=== PATIENT | male | born 1975 | race Caucasian/White ===

== ENCOUNTER → 2019-12-18 08:44 | Outpatient (CLI) | payer OTHER, SELFPAY ==
[2019-12-18 09:48] LABS: Bacteria Urine None Seen; RBC Urine None Seen (0-5/HPF); WBC Urine None Seen (0-5/HPF)
[2019-12-18 09:50] LABS: Appearance Urine UA CLEAR; Bilirubin Urine UA NEGATIVE (NEGATIVE); Color Urine UA YELLOW; Glucose Urine UA NEGATIVE (Negative); Ketones Urine UA NEGATIVE (NEGATIVE); Leukocyte Esterase Urine UA NEGATIVE (NEGATIVE); Nitrite Urine UA NEGATIVE (Negative); Occult Blood Urine UA NEGATIVE (Negative); Protein Urine UA NEGATIVE (Negative); Specific Gravity Urine UA 1.025 (1.000-1.035); Urobilinogen Urine UA 0.2 E.U./dL (0.2)
[2019-12-18 09:54] LABS: Culture Indicated Urine Cult Not Indicated; Urine Comments Microscopic Normal
[2019-12-18 10:14] LABS: Add Manual Diff / Slide Review NO; Basophils Absolute Auto 0 /uL (0-100); Basophils Percent Auto 1.4 % (0-2); Eosinophils Absolute Auto 100 /uL (0-450); Eosinophils Percent Auto 2.7 % (2-4); Hematocrit 42.1 % (41-53); Hemoglobin 15.2 g/dL (13.5-17.5); Lymphocytes Absolute Auto 1100 /uL (1100-4500); Lymphocytes Percent Auto 45.3 % (25-40); Mean Corpuscular HGB Conc 36.2 % (30-36); Mean Corpuscular Hemoglobin 32.7 PG (26-34); Mean Corpuscular Volume 90.2 fL (80-100); Monocytes Absolute Auto 300 /uL (0-900); Monocytes Percent Auto 11.1 % (3-14); Neutrophils Absolute Auto 1000 /uL (1500-7000); Neutrophils Percent Auto 39.5 % (50-75); Platelet Count 175 X10^3/uL (150-400); Red Blood Cell Count 4.66 X10^6/uL (4.5-5.9); Red Cell Distribution Width 12.8 % (11.6-14.8); White Blood Cell Count 2.5 X10^3/uL (4.5-11.0)
[2019-12-18 11:08] LABS: Alanine Aminotransferase 33 IU/L (<50); Albumin 4.6 g/dL (3.5-5.0); Albumin Globulin Ratio 1.8 (1.0-2.8); Alkaline Phosphatase 50 U/L (38-126); Aspartate Aminotransferase 38 IU/L (17-59); BUN Creatinine Ratio 16.3 (6-22); Blood Urea Nitrogen 14 mg/dL (9-20); Calcium 9.1 mg/dL (8.4-10.2); Carbon Dioxide 28 mmol/L (22-32); Chloride 102 mmol/L (98-107); Estimated Glomerular Filt Rate > 60.0 mL/min (>60); Globulin 2.6 g/dL (1.7-4.1); Glucose 82 mg/dL (70-100); HEMOLYSIS < 15 (0-50); Lipase 71 U/L (23-300); Potassium 4.1 mmol/L (3.4-5.1); Sodium 137 mmol/L (137-145); Total Protein 7.2 g/dL (6.3-8.2)
== END ==
PROVIDERS: Nurse Practitioner; PCP Internal Medicine; Referring Provider Physician Assistant; Visit Provider Physician Assistant
DX: R10.9 Unspecified abdominal pain (principal)
CPT/HCPCS: 36415; 80053; 81001; 83690; 85025

== ENCOUNTER → 2019-12-28 13:04 | Outpatient (CLI) | payer OTHER, SELFPAY ==
--- NOTE | 2019-12-28 13:05 | DI.CT.S_ITS ---
PROCEDURE: CT ABDOMEN PELVIS W CON INDICATIONS: Lower mid abd pain/pressure x 1 year TECHNIQUE: After the administration of intravenous contrast, 5 mm thick sections acquired from the diaphragm to the symphysis. 5 mm coronal and sagittal reformats were acquired. For radiation dose reduction, the following was used: automated exposure control, adjustment of mA and/or kV according to patient size. COMPARISON: None. FINDINGS: Image quality: Excellent. ABDOMEN: Lung bases: Lung bases are clear. Heart size is normal. Small hiatal hernia. Solid organs: Liver is normal in size and enhancement. Gallbladder is normal. Biliary system is non dilated. Pancreas enhances normally. Spleen is normal in size and enhancement. No adrenal nodules. Kidneys demonstrate normal size and enhancement, without hydronephrosis. Low-density cortical nodules in kidneys are most likely small renal cysts. Peritoneum and bowel: Appendix is normal. Bowel loops demonstrate normal wall thickness and caliber. No free fluid or air. Nodes and vessels: No retroperitoneal or mesenteric adenopathy by size criteria. Aorta and inferior vena cava are normal in size. Miscellaneous: No ventral hernias. PELVIS: Genitourinary: Bladder wall appears mildly thickened. Prostate is unremarkable. Miscellaneous: No inguinal hernias or adenopathy. Bones: No suspicious bony lesions. No vertebral body compression fractures. Mild degenerative changes in lumbar spine. IMPRESSION: 1. Mild bladder wall thickening suggesting mild cystitis or chronic bladder outlet obstruction. Recommend clinical correlation. 2. Normal appendix. Dictated by: Alison Mcnair M.D. on 12/28/2019 at 14:28 Approved by: Alison Mcnair M.D. on 12/28/2019 at 14:32
== END ==
PROVIDERS: PCP Internal Medicine; Referring Provider Nurse Practitioner; Visit Provider Nurse Practitioner
DX: R10.30 Lower abdominal pain, unspecified (principal); K44.9 Diaphragmatic hernia without obstruction or gangrene
CPT/HCPCS: 74177

== ENCOUNTER → 2020-01-10 07:08 | Outpatient (CLI) | payer OTHER, SELFPAY ==
[2020-01-10 08:30] LABS: Add Manual Diff / Slide Review NO; Basophils Absolute Auto 0 /uL (0-100); Basophils Percent Auto 1.1 % (0-2); Eosinophils Absolute Auto 100 /uL (0-450); Hematocrit 40.2 % (41-53); Hemoglobin 14.6 g/dL (13.5-17.5); Lymphocytes Absolute Auto 1200 /uL (1100-4500); Lymphocytes Percent Auto 41.2 % (25-40); Mean Corpuscular HGB Conc 36.4 % (30-36); Mean Corpuscular Hemoglobin 32.4 PG (26-34); Monocytes Absolute Auto 300 /uL (0-900); Neutrophils Absolute Auto 1200 /uL (1500-7000); Neutrophils Percent Auto 42.7 % (50-75); Platelet Count 181 X10^3/uL (150-400); Red Blood Cell Count 4.51 X10^6/uL (4.5-5.9); Red Cell Distribution Width 12.3 % (11.6-14.8); White Blood Cell Count 2.8 X10^3/uL (4.5-11.0)
[2020-01-10 08:39] LABS: Alanine Aminotransferase 29 IU/L (<50); Albumin 4.3 g/dL (3.5-5.0); Albumin Globulin Ratio 1.6 (1.0-2.8); Alkaline Phosphatase 45 U/L (38-126); Aspartate Aminotransferase 33 IU/L (17-59); BUN Creatinine Ratio 14.5 (6-22); Bilirubin Total 0.8 mg/dL (0.2-1.3); Blood Urea Nitrogen 11 mg/dL (9-20); Calcium 8.9 mg/dL (8.4-10.2); Carbon Dioxide 31 mmol/L (22-32); Chloride 104 mmol/L (98-107); Cholesterol 212 mg/dL (140-199); Estimated Glomerular Filt Rate > 60.0 mL/min (>60); Globulin 2.7 g/dL (1.7-4.1); Glucose 91 mg/dL (70-100); HDL Cholesterol 50 mg/dL (40-60); HEMOLYSIS < 15 (0-50); LDL Cholesterol Calculated 146 mg/dL (<100); Sodium 138 mmol/L (137-145); Triglycerides 82 mg/dL (35-150)
[2020-01-10 08:51] LABS: HEMOLYSIS < 15 (0-50); Iron 111 ug/dL (49-181)
[2020-01-10 09:01] LABS: Prostate Specific Antigen Scrn 0.283 ng/mL (0.1-4.0)
[2020-01-10 09:03] LABS: Percent Iron Saturation 34 % (20-50); Total Iron Binding Capacity 325 ug/dL (261-462); Transferrin 246 mg/dL (206-381)
[2020-01-10 09:05] LABS: Ferritin 73 ng/mL (18-464)
[2020-01-10 09:10] LABS: Vitamin D 25 Hydroxy (D3) 68.6 ng/mL (30.0-100.0)
[2020-01-10 09:35] LABS: Folate 18.5 ng/mL (2.76-20.0); Vitamin B12 421 pg/mL (239-931)
== END ==
PROVIDERS: PCP Physician Assistant; Referring Provider Physician Assistant; Visit Provider Physician Assistant
DX: D70.9 Neutropenia, unspecified (principal); E78.2 Mixed hyperlipidemia; Z12.5 Encounter for screening for malignant neoplasm of prostate; R10.9 Unspecified abdominal pain; R35.0 Frequency of micturition; R39.89 Other symptoms and signs involving the genitourinary system
CPT/HCPCS: 36415; 80053; 80061; 82306; 82607; 82728; 82746; 83540; 83550; 85025; G0103

== ENCOUNTER → 2020-03-13 07:41 | Outpatient (CLI) | payer OTHER, SELFPAY ==
--- NOTE | 2020-03-13 07:41 | DI.US.S_ITS ---
PROCEDURE: US SCROTUM INDICATIONS: SCROTAL PAIN AND NUMBNESS TECHNIQUE: Real-time scanning was performed of the scrotum and testicles, with image documentation. Color and pulse Doppler interrogation was performed of both testicles. COMPARISON: [facility], CT, CT ABDOMEN PELVIS W CON, 12/28/2019, 14:08. FINDINGS: Right: Testicle is normal in size at 4.6 x 3.3 x 2.1 cm, and homogenous in echotexture. Epididymis is normal in overall size and demonstrates a cluster of cysts that measure up to 7 mm. No hydrocele or varicoceles. Overlying scrotal skin is normal in thickness. Left: Testicle is normal in size at 4.8 x 3.2 x 2 cm, and homogeneous in echotexture. Epididymis is normal in overall size and demonstrates a 2 mm epididymal head cyst. No hydrocele or varicoceles. Overlying scrotal skin is normal in thickness. Doppler: Color and pulse Doppler demonstrate normal and symmetric arterial flow in both testicles. IMPRESSION: Normal testicles, with normal appearing, symmetric vascularity. No imaging explanation is found for this patient's presenting symptoms. Dictated by: Jakob Betancourt M.D. on 03/13/2020 at 8:53 Approved by: Jakob Betancourt M.D. on 03/13/2020 at 8:55
[2020-03-13 09:17] LABS: Hematocrit 43.5 % (41-53); Hemoglobin 15.5 g/dL (13.5-17.5); Mean Corpuscular HGB Conc 35.8 % (30-36); Mean Corpuscular Hemoglobin 31.4 PG (26-34); Mean Corpuscular Volume 87.7 fL (80-100); Platelet Count 196 X10^3/uL (150-400); Red Blood Cell Count 4.95 X10^6/uL (4.5-5.9); Red Cell Distribution Width 12.9 % (11.6-14.8); White Blood Cell Count 3.5 X10^3/uL (4.5-11.0)
[2020-03-13 09:26] LABS: Neutrophils Absolute Manual 1540 /uL (3000-5900); RBC Morphology Normal Morphology; Total Cells Counted 100
== END ==
PROVIDERS: PCP Physician Assistant; Referring Provider Internal Medicine; Visit Provider Internal Medicine
DX: N50.82 Scrotal pain (principal); R20.0 Anesthesia of skin; D72.819 Decreased white blood cell count, unspecified
CPT/HCPCS: 36415; 76870; 82525; 85025

== ENCOUNTER → 2020-06-19 08:21 | Outpatient (CLI) | payer OTHER, SELFPAY ==
[2020-06-19] MEDS: COVID-19 VACC #1, MRNA(MOD) 100 MCG/0.5 ML VIAL IM (08:30)
== END ==
PROVIDERS: PCP Physician Assistant; Visit Provider Internal Medicine
DX: Z23 Encounter for immunization (principal)
CPT/HCPCS: 0011A; 91301

== ENCOUNTER → 2020-07-17 08:08 | Outpatient (CLI) | payer OTHER, SELFPAY ==
[2020-07-17] MEDS: COVID-19 VACC #2, MRNA(MOD) 100 MCG/0.5 ML VIAL IM (08:19)
== END ==
PROVIDERS: PCP Physician Assistant; Visit Provider Internal Medicine
DX: Z23 Encounter for immunization (principal)
CPT/HCPCS: 0012A; 91301

== ENCOUNTER → 2020-09-02 08:08 | Outpatient (CLI) | payer OTHER, SELFPAY | PROVIDERS: PCP Physician Assistant; Visit Provider Urology | DX: R30.0 Dysuria (principal); R39.11 Hesitancy of micturition; N50.89 Other specified disorders of the male genital organs; N32.89 Other specified disorders of bladder | CPT/HCPCS: 81002; 87086 ==

== ENCOUNTER 2023-08-08 14:29 | Emergency (ER) | payer OTHER, SELFPAY ==
[2023-08-08 14:34] VITALS: BP 174/91; PULSE 80; RESP 16; TEMP 36.8; O2SAT 100; BMI 25.0
--- NOTE | 2023-08-08 14:44 | DI.CT.S_ITS ---
PROCEDURE: CT HEAD/BRAIN WO CON INDICATIONS: episode of blurry vision/gait change-now resolved TECHNIQUE: Noncontrast 4.5 mm thick angled axial sections acquired from the foramen magnum to the vertex, with coronal and sagittal reformats. For radiation dose reduction, the following was used: automated exposure control, adjustment of mA and/or kV according to patient size. COMPARISON: None. FINDINGS: Image quality: Diagnostic. CSF spaces: Basal cisterns are patent. No extra-axial fluid collections. Ventricles are normal in size and shape. Brain: No midline shift. No intracranial masses or hemorrhage. Gallardo-white matter interface is normal. Skull and face: Calvarium and visualized facial bones are intact, without suspicious lesions. Sinuses: Visualized sinuses and mastoids are clear. IMPRESSION: No acute intracranial pathology. Dictated by: Diego Francisco M.D. on 08/08/2023 at 15:36 Approved by: Diego Francisco M.D. on 08/08/2023 at 15:36
--- NOTE | 2023-08-08 14:45 | DI.RAD.S_ITS ---
PROCEDURE: XR CHEST 1V INDICATIONS: chest pain TECHNIQUE: One view of the chest was acquired. COMPARISON: None. FINDINGS: Surgical changes and devices: None. Lungs and pleura: Lungs are clear. No pleural effusions or pneumothorax. Mediastinum: Mediastinal contours appear normal. Heart size is normal. Bones and chest wall: No suspicious bony lesions. Overlying soft tissues appear unremarkable. IMPRESSION: No acute cardiopulmonary abnormality is seen. Dictated by: Diego Francisco M.D. on 08/08/2023 at 16:15 Approved by: Diego Francisco M.D. on 08/08/2023 at 16:15
[2023-08-08 15:09] LABS: Add Manual Diff / Slide Review NO; Basophils Absolute Auto 100 /uL (0-100); Basophils Percent Auto 2.3 % (0-2); Eosinophils Absolute Auto 100 /uL (0-450); Eosinophils Percent Auto 3.1 % (2-4); Hematocrit 42.7 % (41-53); Hemoglobin 15.3 g/dL (13.5-17.5); Lymphocytes Absolute Auto 1800 /uL (1100-4500); Lymphocytes Percent Auto 40.6 % (25-40); Mean Corpuscular HGB Conc 35.8 % (30-36); Mean Corpuscular Hemoglobin 31.1 PG (26-34); Mean Corpuscular Volume 86.9 fL (80-100); Monocytes Absolute Auto 400 /uL (0-900); Monocytes Percent Auto 9.9 % (3-14); Neutrophils Absolute Auto 2000 /uL (1500-7000); Neutrophils Percent Auto 44.1 % (50-75); Platelet Count 194 X10^3/uL (150-400); Red Blood Cell Count 4.91 X10^6/uL (4.5-5.9); Red Cell Distribution Width 13.3 % (11.6-14.8); White Blood Cell Count 4.4 X10^3/uL (4.5-11.0)
[2023-08-08 15:12] LABS: Prothrombin Time 11.4 SECONDS (9.4-12.5)
[2023-08-08] MEDS: ASPIRIN 81 MG CHEW TAB 324 MG PO (15:13)
[2023-08-08 15:15] LABS: PTT Partial Thromboplastin Tim 34 SECONDS (25.1-36.5)
[2023-08-08 15:22] LABS: Alanine Aminotransferase 63 IU/L (<50); Albumin 4.7 g/dL (3.5-5.0); Albumin Globulin Ratio 1.8 (1.0-2.8); Alkaline Phosphatase 56 U/L (38-126); Aspartate Aminotransferase 53 IU/L (17-59); BUN Creatinine Ratio 11.9 (6-22); Bilirubin Total 0.9 mg/dL (0.2-1.3); Blood Urea Nitrogen 10 mg/dL (9-20); Calcium 8.8 mg/dL (8.4-10.2); Carbon Dioxide 27 mmol/L (22-32); Chloride 103 mmol/L (98-107); Creatine Kinase 156 U/L (55-170); Estimated Glomerular Filt Rate > 60 mL/min (>60); Globulin 2.6 g/dL (1.7-4.1); Glucose 101 mg/dL (70-100); HEMOLYSIS < 15 (0-50); Lipase 612 U/L (23-300); Magnesium 2.1 mg/dL (1.6-2.3); Potassium 3.7 mmol/L (3.4-5.1); Sodium 138 mmol/L (137-145); Total Protein 7.3 g/dL (6.3-8.2)
--- NOTE | 2023-08-08 15:31 | PC.NURSE ---
Pt reports chest tightness and sudden dizziness that began around 1230 with some blurred vision. Pt dizziness has improved, but 3/10 chest tightness and slight blurred vision remains. 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 Pt is A&O and ambulated to the CT. Steady on feet. Encouraged to use call light for any change in symptoms. Call light within reach.
[2023-08-08 15:33] LABS: Troponin I < 0.012 ng/mL (0.01-0.034)
[2023-08-08 17:30] VITALS: BP 134/91; PULSE 70; RESP 18; O2SAT 99
[2023-08-08 18:00] VITALS: BP 122/84; PULSE 71; RESP 10; O2SAT 99
--- NOTE | 2023-08-08 18:06 | ED.NEUROSD ---
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 He notes that he woke up this morning and felt ?off?. He felt that it was likely due to poor sleep. By noon he was feeling some overall chest tightness and by 12 he had an episode where he was dizzy felt like he was going to pass out increasingly lightheaded with a brief transient episode of double vision. Since he has been in the emergency department he has been feeling well with no recurrent symptoms. 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 He reports no recent fevers, cough, chills, palpitations, nausea, vomiting, diarrhea, lower extremity edema. On Anticoagulants: No Related Data Home Medications Medication Instructions Recorded Confirmed Lactobacillus acidophilus 10 50,000 mmu cells PO DAILY 03/11/20 02/11/21 billion cell capsule (Probiotic) multivitamin 1 cap DAILY 03/11/20 02/11/21 Allergies Allergy/AdvReac Type Severity Reaction Status Date / Time No Known Drug Allergies Allergy Verified 11/07/20 08:58 Review of Systems Review of Systems Narrative: Pertinent positive and negative findings as per HPI Hematologic/Lymphatic On Anticoagulants: No Patient History Medical History Dysuria Bladder wall thickening Scrotal irritation Urinary hesitancy No significant medical problems Social History Smoking Status: Never smoker Smoking Status: Never smoker Substance Use Type: does not use Exam Initial Vital Signs Initial Vital Signs: Vital Signs Temperature 98.2 F 08/08/23 14:34 Pulse Rate 80 08/08/23 14:34 Respiratory Rate 16 08/08/23 14:34 Blood Pressure 174/91 H 06/10/24 14:34 Pulse Oximetry 100 08/08/23 14:34 Oxygen Delivery Method Room Air 08/08/23 14:34 General: Healthy appearing, in no acute distress. Able to give a complete and coherent history. Well-nourished well-developed HEENT: Moist mucous membranes, normal sclera with reactive pupils, Respiratory: Lungs are clear to auscultation, no wheezing no rales no rhonchi. Full and symmetrical air movement Cardiac: Regular rate and rhythm no murmurs no bruits Abdomen: Soft, nontender, good bowel tones, no flank pain Skin: Warm and dry, no rashes Neurologic: Grossly neurologically intact with no obvious asymmetries or abnormalities Extremities: No trauma, well perfused Psych: Cooperative, appropriate insight and affect Course Orders Ordered: ED Orders 08/08/23 14:44 CT head/brain wo con Stat 08/08/23 14:45 XR chest 1V Stat EKG-12 Lead Stat 08/08/23 14:50 Complete Blood Count AUTO DIFF Stat Comprehensive Metabolic Panel Stat Lipase Stat Magnesium Stat PTT Partial Thromboplastin Fareed Stat Prothrombin Time INR Stat Troponin & CK Cardiac Panel Stat 08/08/23 18:05 Trop I [Troponin I] Stat Discontinued Medications Aspirin (Aspirin 81 Mg Chew Tab) 324 mg PO NOW ONE Stop: 08/08/23 14:46 Last Admin: 08/08/23 15:13 Dose: 81 mg Documented By: ISHAN Vital Signs Vital signs: Vital Signs - 8 hr 08/08/23 14:34 08/08/23 17:30 Temperature 98.2 F Pulse Rate 80 70 Respiratory Rate 16 18 Blood Pressure 174/91 H 134/91 H Pulse Oximetry 100 99 Oxygen Delivery Method Room Air Room Air MDM - Neuro Symptoms/Deficit Lab Data 08/08/23 14:50 08/08/23 14:50 Labs: Lab Results 08/08/23 Range/Units 14:50 WBC 4.4 L (4.5-11.0) X10^3/uL RBC 4.91 (4.5-5.9) X10^6/uL Hgb 15.3 (13.5-17.5) g/dL Hct 42.7 (41-53) % MCV 86.9 (80-100) fL MCH 31.1 (26-34) PG MCHC 35.8 (30-36) % RDW 13.3 (11.6-14.8) % Plt Count 194 (150-400) X10^3/uL Neut % (Auto) 44.1 L (50-75) % Lymph % (Auto) 40.6 H (25-40) % Hernando % (Auto) 9.9 (3-14) % Eos % (Auto) 3.1 (2-4) % Baso % (Auto) 2.3 H (0-2) % Neut # (Auto) 2000 (5656-6741) /uL Lymph # (Auto) 1800 (6335-0849) /uL Hernando # (Auto) 400 (0-900) /uL Eos # (Auto) 100 (0-450) /uL Baso # (Auto) 100 (0-100) /uL PT 11.4 (9.4-12.5) SECONDS INR 1.0 (0.9-1.3) APTT 34 (25.1-36.5) SECONDS Sodium 138 (137-145) mmol/L Potassium 3.7 (3.4-5.1) mmol/L Chloride 103 (98-107) mmol/L Carbon Dioxide 27 (22-32) mmol/L BUN 10 (9-20) mg/dL Creatinine 0.84 (0.66-1.25) mg/dL Estimated GFR > 60 (>60) mL/min BUN/Creatinine Ratio 11.9 (6-22) Glucose 101 H (70-100) mg/dL Calcium 8.8 (8.4-10.2) mg/dL Magnesium 2.1 (1.6-2.3) mg/dL Total Bilirubin 0.9 (0.2-1.3) mg/dL AST 53 (17-59) IU/L ALT 63 H (<50) IU/L Alkaline Phosphatase 56 (38-126) U/L Total Creatine Kinase 156 (55-170) U/L Troponin I < 0.012 (0.01-0.034) ng/mL Total Protein 7.3 (6.3-8.2) g/dL Albumin 4.7 (3.5-5.0) g/dL Globulin 2.6 (1.7-4.1) g/dL Albumin/Globulin Ratio 1.8 (1.0-2.8) Lipase 612 H (23-300) U/L MDM Narrative Medical decision making narrative: CC: Feeling off, chest pressure, dizziness Complicating co-morbidities: 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 Pertinent findings: CBC is reassuring, no anemia or infection Chemistries show no significant dehydration Lipase is elevated however he has no clinical signs or symptoms of pancreatitis Initial troponin is unremarkable Independently reviewed EKG: Sinus rhythm at a rate of 72. No acute ischemic changes. Normal intervals, normal axis Imaging studies independently reviewed: Chest x-ray is reassuring Treatments: Aspirin given on arrival Discussion: 47-year-old gentleman with significant stress, poor sleep, I suspect there is a significant degree of actual physical exhaustion with no evidence of life-threatening abnormality such as acute coronary syndrome, stroke, severe anemia or alternate explanation would suggest additional workup or hospitalization at this time. Findings reviewed with the patient, we had a significant discussion about the importance of time off even in the middle of exceptionally busy periods in your life. Patient is safe for discharge Discharge Plan Departure Patient Disposition: Home Clinical Impression: Atypical chest pain Fatigue Qualifiers: Fatigue type: unspecified Qualified Code(s): R53.83 - Other fatigue Activity Restrictions/Additional Instructions: Thank you for coming in today, with your symptoms I believe this emergency visit was 100% appropriate Fortunately, all of the physical things that I am checking are coming back quite reassuring. There was no evidence of stroke, the CT scan of your brain looks beautiful, your chest x-ray is entirely normal. EKGs quite reassuring. All of your blood work is within normal limits. It sounds like you and your have had a bit of time to reflect on how busy you been and how much stress this is caused. I suspect that the physical symptoms that you experienced today are similar to the emotional symptoms that you are also experiencing. If you enjoy listening to audible books while you are working, you might consider listening to ?your money or your life? by Melissa Ahumada and Shashank Villanueva. Another fantastic book is ?why we sleep? by Hans jimenez. Although easy to talk about and much more difficult to actually do, managing down time and overall health, particularly when your body is speaking so loudly to you, is essential to overall health and longevity. If you find that you are getting worse or develop any new symptoms, please feel free to return to the emergency department for further evaluation. Prescriptions: No Action multivitamin Capsule 1 cap DAILY Probiotic 10 billion cell Capsule 50,000 mmu cells PO DAILY Referrals: Ximena Wilde PA-C [Primary Care Provider] - Stand Alone Forms: Patient Portal/API
[2023-08-08 18:30] VITALS: BP 121/85; PULSE 73; RESP 17; O2SAT 98
[2023-08-08 19:00] VITALS: BP 129/92; PULSE 73; RESP 19; O2SAT 98
[2023-08-08 19:13] LABS: Troponin I < 0.012 ng/mL (0.01-0.034)
== END 2023-08-08 19:17 | disposition home or self-care (01) ==
PROVIDERS: Emergency Medicine; Emergency Provider Emergency Medicine; PCP Physician Assistant
DX: R07.89 Other chest pain (principal); R42 Dizziness and giddiness; H53.8 Other visual disturbances
CPT/HCPCS: 36415; 70450; 71045; 80053; 82550; 83690; 83735; 84484; 85025; 85610; 85730; 93005; 93010; 99284